=== PATIENT | female | born 1950 ===

== ENCOUNTER 2021-04-25 10:31 | Outpatient (CLI) | payer OTHER | END 2021-04-25 10:36 | disposition home or self-care (01) | LOC: SONOGRAMA 10:31 | PROVIDERS: ATTEND Pathology Anatomic Pathology & Clinical Pathology | DX: E04.1 Nontoxic single thyroid nodule (principal); D34 Benign neoplasm of thyroid gland; E06.5 Other chronic thyroiditis; E04.8 Other specified nontoxic goiter ==

== ENCOUNTER 2023-04-04 06:00 | Day surgery (SDC) | payer OTHER ==
[~2023-04-04] VITALS: Ht 152.4 cm; Wt 67.6 kg
[~2023-04-04 06:00] MED LIST: ANASTROZOLE1 MG PO; ATORVASTATIN CA10 MG PO; CALTRATE GUMMY1 EACH PO; LIPITOR20 MG PO; LOTREL 10-20 M1 EACH PO
== END 2023-04-04 14:00 | disposition home or self-care (01) ==
LOC: CIR.AMB 06:00 → EDBD 09:45 → CIR.AMB 11:00
PROVIDERS: ATTEND Colon & Rectal Surgery
DX: K64.2 Third degree hemorrhoids (principal); K62.89 Other specified diseases of anus and rectum; K92.1 Melena; Z20.822 Contact with and (suspected) exposure to COVID-19; I10 Essential (primary) hypertension